=== PATIENT | female | born 1975 ===

== ENCOUNTER 2018-02-10 13:09 | Emergency (ER) | payer SELFPAY ==
[2018-02-10 13:20] VITALS: RESP 18; O2SAT 99
--- NOTE | 2018-02-10 14:38 | C.PDOC ---
History Of Present Illness 42-year-old female, presents to the emergency department with complaints of feeling anxious and depressed. Patient states she is having marital problems, and is currently going through a divorce. She denies nausea/vomiting, fever, chills, chest pain, SI/HI or any other associated symptoms. No other complaints at this time. Time Seen by Provider: 02/10/18 13:31 Chief Complaint (Nursing): Psychiatric Evaluation History Per: Patient History/Exam Limitations: no limitations Onset/Duration Of Symptoms: Days Current Symptoms Are (Timing): Still Present Past Medical History Reviewed: Historical Data, Nursing Documentation, Vital Signs Vital Signs: Last Vital Signs Temp 98.7 F 02/10/18 15:15 Pulse 61 02/10/18 15:15 Resp 18 02/10/18 15:15 BP 111/73 02/10/18 15:15 Pulse Ox 99 02/10/18 18:41 Family History: States: No Known Family Hx - Social History Hx Alcohol Use: No Hx Substance Use: No - Immunization History Hx Tetanus Toxoid Vaccination: No Hx Influenza Vaccination: No Hx Pneumococcal Vaccination: No Review Of Systems Constitutional: Negative for: Fever, Chills Cardiovascular: Negative for: Chest Pain Respiratory: Negative for: Shortness of Breath Gastrointestinal: Negative for: Nausea, Vomiting Musculoskeletal: Negative for: Back Pain Neurological: Negative for: Weakness, Numbness Psych: Positive for: Anxiety, Depression Physical Exam - Physical Exam Appears: Non-toxic, No Acute Distress, Other (tearful) Skin: Normal Color, Warm, Dry, No Rash Head: Atraumatic, Normacephalic Eye(s): bilateral: Normal Inspection Nose: Normal Oral Mucosa: Moist Lips: Normal Appearing Neck: Normal ROM Cardiovascular: Rhythm Regular, No Murmur Respiratory: Normal Breath Sounds, No Accessory Muscle Use Gastrointestinal/Abdominal: Soft, No Tenderness Extremity: Normal ROM, No Deformity Neurological/Psych: Oriented x3, Normal Speech ED Course And Treatment O2 Sat by Pulse Oximetry: 99 (RA) Pulse Ox Interpretation: Normal Medical Decision Making Medical Decision Making: The patient was evaluated by crisis team, who state that the patient has no SI, HI, or hallucinations. The patient was given information for outpatient psych. Disposition - Disposition Referrals: [facility] [Outside] [place] [facility] [Outside] Disposition: HOME/ ROUTINE Disposition Time: 15:14 Condition: GOOD Additional Instructions: Follow up with the outpatient psych within 1-2 days. Return if worsened. Instructions: Adjustment Disorder, Anxiety, Adult (DC) Forms: [employer] (Maldivian) Print Language: SLOVAK - Clinical Impression Clinical Impression: Adjustment disorder - Scribe Statement The provider has reviewed the documentation as recorded by the Scribe (Zachary Robins) All medical record entries made by the Scribe were at my direction and personally dictated by me. I have reviewed the chart and agree that the record accurately reflects my personal performance of the history, physical exam, medical decision making, and the department course for this patient. I have also personally directed, reviewed, and agree with the discharge instructions and disposition.
[2018-02-10 15:19] VITALS: BP 111/73; PULSE 61; TEMP 98.7
== END 2018-02-10 15:27 | disposition home or self-care (01) ==
LOC: C.ER 13:09
DX: F43.20 Adjustment disorder, unspecified (principal)